=== PATIENT | female | born 1975 | race Caucasian/White ===

== ENCOUNTER → 2020-08-25 10:06 | Outpatient (BNVA) | payer BC, SELFPAY | PROVIDERS: Family Provider Nurse Practitioner Family; Visit Provider Nurse Practitioner Family | DX: Z13.220 Encounter for screening for lipoid disorders (principal); Z13.1 Encounter for screening for diabetes mellitus | CPT/HCPCS: 80048; 80061 ==

== ENCOUNTER 2020-09-08 13:46 | Outpatient (CLI) | payer BC, SELFPAY ==
--- NOTE | 2020-09-08 14:30 | MM_ITS ---
WS: [id number] BILATERAL DIGITAL SCREENING MAMMOGRAPHY WITH CAD CLINICAL INFORMATION: screening HISTORY: Screening mammogram. No current complaints. COMPARISON: TECHNIQUE: Bilateral CC and MLO views. FINDINGS: Scattered fibroglandular densities bilaterally. No suspicious focal mass, asymmetry, calcifications, or architectural distortion. No evidence of malignancy. MM/[place] [id number] IMPRESSION: BI-RADS: 1-Negative FOLLOW UP: 1 Year Follow-up Recommend return to annual screening mammography.
== END 2020-09-08 13:47 | disposition home or self-care (01) ==
LOC: RADSHAW 13:52
PROVIDERS: Family Provider Nurse Practitioner Family; PCP Nurse Practitioner Family; Visit Provider Nurse Practitioner Family
DX: Z12.31 Encounter for screening mammogram for malignant neoplasm of breast (principal)
CPT/HCPCS: 77067

== ENCOUNTER 2020-09-13 14:51 | Outpatient (CLI) | payer BC, SELFPAY ==
--- NOTE | 2020-09-13 14:59 | USCV_ITS ---
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 – [place] Indication: leg pain HISTORY: Lower extremity pain. PROCEDURES: Venous duplex imaging was performed in only the left lower extremity. The following venous structures were evaluated: common femoral vein, profunda vein, proximal portion of the greater saphenous vein, superficial femoral vein, and the popliteal vein. In addition, the posterior tibial and peroneal trunk were evaluated. Serial compression, augmentation maneuvers, and spectral Doppler flow evaluation were performed. FINDINGS: Normal 2-D Doppler and augmentation and compressibility throughout the lower extremity venous structures. Additional imaging through the proximal calf veins also reveals no thrombus. Limited evaluation of the greater saphenous vein is patent with no thrombus. CONCLUSIONS No DVT left lower extremity. Dr. Rashida Torres DO (Electronically Signed) Final Date: 14 September 2020 08:36 S
== END 2020-09-13 14:52 | disposition home or self-care (01) ==
PROVIDERS: PCP Nurse Practitioner Family; Visit Provider Nurse Practitioner Family
DX: M79.652 Pain in left thigh (principal); M79.605 Pain in left leg
CPT/HCPCS: 93971

== ENCOUNTER 2023-07-23 10:20 | Outpatient (CLI) | payer OTHER, SELFPAY ==
--- NOTE | 2023-07-23 10:31 | XRR_ITS ---
PROCEDURE INFORMATION: Exam: XR Right Shoulder Exam date and time: 07/23/2023 10:44 AM Age: 47 years old Clinical indication: Shoulder; Right; Patient HX: Patient has limited motion and pain for 2 months; Additional info: M25.511 - pain in right shoulder TECHNIQUE: Imaging protocol: Radiologic exam of the right shoulder. Views: 2 or more views. COMPARISON: CR XR chest 1V [id number] 03/09/2018 7:37 PM FINDINGS: Bones/joints: The glenohumeral joint is intact. There is mild hypertrophy of the acromioclavicular joint. Soft tissues: There is a calcification seen adjacent to the greater tuberosity. XR/XR shoulder RT min 2V* [id number] IMPRESSION: 1. Mild right acromioclavicular joint hypertrophy. 2. Calcific tendinosis.
== END 2023-07-23 10:21 | disposition home or self-care (01) ==
PROVIDERS: PCP Nurse Practitioner Family; Visit Provider Nurse Practitioner Family
DX: M75.31 Calcific tendinitis of right shoulder (principal); M25.511 Pain in right shoulder
CPT/HCPCS: 73030

== ENCOUNTER 2023-08-22 08:19 | Outpatient (CLI) | payer OTHER, SELFPAY ==
--- NOTE | 2023-08-22 08:45 | MR_ITS ---
WS: [id number] MRI RIGHT SHOULDER NONCONTRAST TECHNIQUE: Sagittal T2, coronal T1, T2 and proton density imaging. Axial gradient PDE imaging. CLINICAL INFORMATION: M25.511 - Pain in right shoulder COMPARISON: None. FINDINGS: Moderate degenerative arthritis at the AC joint with mild downsloping acromion. Slight subacromial sp urring. Mild edema at the AC joint. Small amount of subacromial subdeltoid fluid. Impingement on the distal supraspinatus. Tendinopathy with partial intrasubstance and bursal surface tear at the distal insertion. No tendon r etraction. Normal infraspinatus. Normal teres minor. Normal subscapularis. Normal biceps tendon in the bicipital groove. Moderate degenerative arthritis glenohumeral articulation. Normal visualized glenoid labrum. Biceps l abral anchor appears intact. IMPRESSION: Moderate degenerative arthritis AC joint with impingement distal supraspinatus. Tendinopathy with intrasubstance and bursal surface tears involving the distal supraspinatus. No tend on retraction. Tiny insertional tear at the infraspinatus distally. Rotator cuff is otherwise normal. Biceps tendon intact within the bicipital groove.
== END 2023-08-22 08:20 | disposition home or self-care (01) ==
LOC: RAD 08:19
PROVIDERS: PCP Nurse Practitioner Family; Visit Provider Nurse Practitioner Family
DX: M75.101 Unspecified rotator cuff tear or rupture of right shoulder, not specified as traumatic (principal); M19.011 Primary osteoarthritis, right shoulder
CPT/HCPCS: 73221

== ENCOUNTER 2023-10-15 07:00 | Outpatient (CLI) | payer OTHER, SELFPAY ==
--- NOTE | 2023-10-15 07:15 | USCV_ITS ---
Jyoti Moreno Age: 47 Gender: F : 1975 Exam Date: 10/15/2023 07:32 Ordering Phys: Santo Leslie MD Technologist: MARYJO [place] [facility] [place]: TIA BP: 118 / 86 HR: 69 Rhythm: Sinus Technical Quality: Adequate MEASUREMENTS (Male / Female) Normal Values 2D ECHO LVOT Diameter 2.0 cm LV Ejection Fraction MOD 2C 63.7 % LV Ejection Fraction 2C AL 64.2 % LA Diameter 2.3 cm LA Width 2.3 cm LA Height 3.7 cm RA Width 2.3 cm RA Height 3.5 cm Aorta at Sinotubular Diameter 2.1 cm IVC Diameter 1.6 cm M-MODE Aortic Annulus Diameter 2.9 cm LA Ao Ratio MM 0.6 MV E Point Septal Separation 0.6 cm DOPPLER AV Peak Velocity 110.0 cm/s LVOT Peak Velocity 97.0 cm/s AV Area Cont Eq vti 3.1 cm squared AV Area Cont Eq pk 2.7 cm squared MV Peak Velocity 90.0 cm/s MV Area PHT 4.1 cm squared Mitral E to A Ratio 1.4 MV E' Velocity 46.0 cm/s Mitral E to MV E' Ratio 5.5 Mitral E to LV E' Lateral Ratio 4.9 Mitral E to LV E' Septal Ratio 6.3 TR Peak Velocity 122.1 cm/s TR Peak Gradient 6.0 mmHg TR Mean Velocity 106.3 cm/s TR Mean Gradient 4.6 mmHg TR Velocity Time Integral 41.6 cm TV Peak E Velocity 65.0 cm/s Right Atrial Pressure 3.0 mmHg Pulmonary Artery Systolic Pressu 9.0 mmHg PV Peak Velocity 73.0 cm/s RV Acceleration Time 0.1 s RV Ejection Time 0.3 s RV AcT/ET 0.3 FINDINGS Left Ventricle Normal left ventricular size and systolic function, EF 60 %. No regional wall motion abnormalities. Right Ventricle The right ventricle is normal in size and function. Right Atrium The right atrium is normal in size. Left Atrium The left atrium is normal in size. Mitral Valve No gross abnormalities noted Aortic Valve Mild aortic valve regurgitation. Tricuspid Valve Trace tricuspid valve regurgitation. Pulmonic Valve No gross abnormalities noted Pericardium Normal pericardium without effusion. Aorta The root appears to be upper limit of normal size IVC Normal inferior vena cava. CONCLUSIONS Normal left ventricular size and systolic function, EF 60 %. No regional wall motion abnormalities. Mild aortic valve regurgitation. Trace tricuspid valve regurgitation. Possibly normal cardiac chamber sizes. The aortic root, upper limit of normal There is no pericardial effusion. There are no intracardiac masses. No similar previous studies are available for comparison Dr Rukhsana Do MD FAC (Electronically Signed) Final Date: 18 October 2023 10:24 S
== END 2023-10-15 07:01 | disposition home or self-care (01) ==
LOC: RAD 07:00
PROVIDERS: PCP Nurse Practitioner Family; Visit Provider Psychiatry & Neurology Neurology
DX: G45.9 Transient cerebral ischemic attack, unspecified (principal); I08.2 Rheumatic disorders of both aortic and tricuspid valves
CPT/HCPCS: 93306

== ENCOUNTER 2023-10-16 13:24 | Outpatient (CLI) | payer OTHER, SELFPAY ==
[2023-10-16 15:16] LABS: Homocysteine 9.89
[2023-10-17 22:45] LABS: Lupus Hexagonal Phas Confirm NEGATIVE (NEGATIVE)
[2023-10-17 22:49] LABS: PTT-LA-Screen 47 sec (< OR = 40)
[2023-10-19 04:45] LABS: Anti-Cardiolipin IgA AB <2.0 APL-U/mL
[2023-10-20 18:29] LABS: PROTEIN S, ACTIVITY 78 % normal (60-140)
[2023-10-21 22:55] LABS: Beta 2 Glycoprotein IGA <2.0 U/mL (<20.0); Beta 2 Glycoprotein IGG <2.0 U/mL (<20.0); Beta 2 Glycoprotein IGM <2.0 U/mL (<20.0)
[2023-10-22 15:54] LABS: PROTHROMBIN (FACTOR II) 20210G NEGATIVE
[2023-10-22 16:15] LABS: Factor 5 Leiden Mutation NEGATIVE
[2023-10-23 02:14] LABS: Antithrombin III Activity 141 % normal (80-135); PROTEIN C, ACTIVITY 196 % normal (70-180)
== END 2023-10-16 13:25 | disposition home or self-care (01) ==
LOC: LAB 13:24
PROVIDERS: PCP Nurse Practitioner Family; Visit Provider Psychiatry & Neurology Neurology
DX: G45.9 Transient cerebral ischemic attack, unspecified (principal); G43.909 Migraine, unspecified, not intractable, without status migrainosus; R20.0 Anesthesia of skin; R20.2 Paresthesia of skin; F41.9 Anxiety disorder, unspecified; Z82.0 Family history of epilepsy and other diseases of the nervous system; Z82.49 Family history of ischemic heart disease and other diseases of the circulatory system
CPT/HCPCS: 36415; 81241; 83090; 85210; 85300; 85303; 85306; 85613; 85730; 86146; 86147

== ENCOUNTER 2023-12-17 07:53 | Oncology outpatient (recurring) (ONCR) | payer OTHER, SELFPAY ==
[2023-12-19 19:15] LABS: PTT-LA-Screen 37 sec (< OR = 40)
[2023-12-20 02:36] LABS: B2 Glycoprotein I IGM AB <2.0 U/mL; CARDIOLIPIN AB (IGG) <2.0 GPL-U/mL; CARDIOLIPIN AB (IGM) <2.0 MPL-U/mL
== END 2023-12-25 23:59 | disposition home or self-care (01) ==
PROVIDERS: Visit Provider Internal Medicine
DX: R20.0 Anesthesia of skin (principal); R20.2 Paresthesia of skin; Z86.73 Personal history of transient ischemic attack (TIA), and cerebral infarction without residual deficits
CPT/HCPCS: 36415; 85613; 85730; 86146

== ENCOUNTER 2024-03-26 09:56 | Oncology outpatient (recurring) (ONCR) | payer OTHER, SELFPAY | END 2024-03-26 23:59 | disposition home or self-care (01) | PROVIDERS: PCP Nurse Practitioner Family; Visit Provider Nurse Practitioner Family | DX: Z53.9 Procedure and treatment not carried out, unspecified reason (principal) ==

== ENCOUNTER 2025-03-02 13:13 | Outpatient (CLI) | payer OTHER, SELFPAY ==
--- NOTE | 2025-03-02 13:45 | MR_ITS ---
WS: [id number] MRI BRAIN WITH AND WITHOUT CONTRAST HISTORY: G45.9 - Transient cerebral ischemic attack, unspecified COMPARISON: None available. TECHNIQUE: Multiplanar imaging performed through the brain with MultiHance 13 ml's IV. No acute infarcts are seen. Elise-white matter differentiation is well preserved. Minimal small vessel disease. No prior infarct. No significant volume loss. Normal hippocampal formations. No susceptibility artifacts or prior lacunar infarcts. Ventricles and extra-axial spaces are normal. Clivus and pituitary gland are normal. Visualized posterior fossa and brainstem are also normal. Postcontrast images are negative for masses or vascular malformations. Dural venous sinuses are normal. Paranasal sinuses: Well aerated with no significant disease. Mastoid air cells: Normal. Calvarium and scalp: Normal. MR/MR head wo/w con [id number] IMPRESSION: 1. No acute or prior infarcts or hemorrhage. 2. Minimal T2 or FLAIR signal hyperintensities which can be related to small v essel disease, hypertension or migraines or smoking history. 3. Normal ventricles. 4. No enhancing masses.
[2025-03-02] MEDS: gadobenate dimeglumine 20 mL vial 13 ML IV (13:58)
== END 2025-03-02 13:14 | disposition home or self-care (01) ==
PROVIDERS: PCP Nurse Practitioner Family; Visit Provider Psychiatry & Neurology Neurology
DX: G45.9 Transient cerebral ischemic attack, unspecified (principal); R56.9 Unspecified convulsions; G43.909 Migraine, unspecified, not intractable, without status migrainosus; R93.0 Abnormal findings on diagnostic imaging of skull and head, not elsewhere classified
CPT/HCPCS: 70553

== ENCOUNTER 2025-05-18 06:48 | Outpatient (CLI) | payer OTHER, SELFPAY ==
--- NOTE | 2025-05-18 07:30 | CT_ITS ---
WS: [id number] CT ANGIOGRAM CEREBRAL AND CAROTID ARTERIES HISTORY: G45.9 - Transient cerebral ischemic attack, unspecified, migraine for 3 weeks. Blurry vision right eye. TECHNIQUE: CT angiogram is performed of the carotid and cerebral arteries. During arterial injection imaging is obtained from the skull vertex to the aortic arch in 1.25 mm imaging. Coronal and sagittal reformats are submitted. Additional multi planar reformats of the carotid and cerebral arteries are submitted, MIP imaging also reviewed. NASCET criteria utilized. All CT scans at [facility] use at least one of these dose optimization techniques: automated exposure control; mA and/or kV adjustment per patient size (includes targeted exams where dose is matched to clinical indication); or iterative reconstruction. CONTRAST: Omnipaque 350; 100 mL IV. DLP: 1146.74 mGy.cm COMPARISON: None available. Noncontrast CT brain is first performed. No acute intracranial hemorrhage. Normal ventricles. No prior infarct. Carotid Angiogram: Right carotid: Common carotid artery: Arises normally from the innominate artery. No significant plaque or stenosis. Internal carotid artery: No plaque or stenosis. External carotid artery: Patent. Left carotid: Common carotid artery: Arises normally from the aorta. No significant plaque or stenosis. Internal carotid artery: No plaque or stenosis. External carotid artery: Patent. Right vertebral artery: Normal and codominant. Left vertebral artery: Arises from the aortic arch. Codominant. Normal with no occlusion. Subclavian arteries: No stenosis or significant abnormality. Upper thorax: Normal. Thyroid gland: Heterogeneous thyroid. Very small thyroid nodules. Osseous structures: Unremarkable. CEREBRAL ANGIOGRAM: Intracranial vertebral arteries: Normal with no significant atherosclerosis. Basilar artery: No significant stenosis or occlusion. No aneurysm. Intracranial Internal carotid arteries: Demonstrates no significant stenosis or plaque. Middle cerebral arteries: Normal. Anterior cerebral arteries and ACOM: Normal. Slightly smaller caliber RIGHT A1 segment. Both segments are patent. Posterior cerebral arteries and PCOM's: Hypoplastic LEFT P-comm. Dominant RIGHT P-comm. Normal posterior cerebral arteries. There is a very thin filling defect in the LEFT jugular vein at the level of C2. This is asymmetric to the RIGHT. This is not an arachnoid granulation. Defect fills approximately 25% of the jugular vein. Mastoid air cells: Normal. Paranasal sinuses: Normal. Calvarium: Normal. Numerous bilateral cervical chain lymph nodes. New reactive. Normal fatty anni present. CT/CT angio headneck* [id number] IMPRESSION: 1. Normal carotid arteries. 2. No occlusions or aneurysms in the [place]. 3. Thin filling defect in the LEFT jugular vein, involving 25%. Nonocclusive c hronic venous sinus thrombosis should be considered. This could also potentiall y be a flow artifact but similar artifact is not noted on the RIGHT. 4. LEFT vertebral artery arises from the arch.
[2025-05-18] MEDS: iohexol 350 mg/mL 500 mL Btl (per mL) IV (08:18)
== END 2025-05-18 06:49 | disposition home or self-care (01) ==
LOC: RAD 06:48
PROVIDERS: PCP Nurse Practitioner Family; Visit Provider Psychiatry & Neurology Neurology
DX: G45.9 Transient cerebral ischemic attack, unspecified (principal); M62.40 Contracture of muscle, unspecified site; G43.909 Migraine, unspecified, not intractable, without status migrainosus
CPT/HCPCS: 70496; 70498

== ENCOUNTER 2025-06-06 14:15 | Outpatient (CLI) | payer OTHER, SELFPAY ==
--- NOTE | 2025-06-06 14:23 | USCV_ITS ---
Jyoti Moreno Age: 49 Gender: F : 1975 Exam Date: 06/06/2025 14:37 Ordering Phys: Cindy Ross [employer] WORKER-[employer] XX Technologist: CARISSA Exam Location: [facility] – [place] Indication: Lt carotid stenosis and occlusion Risk Factors: Previous Vascular Surgery: Right Brachial BP: / Left Brachial BP: / Right Left Velocity (cm/s) Spectral Plaque Velocity (cm/s) Spectral Plaque Syst/Diast Broadening Syst/Diast Broadening 50.60/ 19.60 Prox CCA 61.40 / 28.80 62.80/ 28.10 Mid CCA 65.10 / 30.60 53.00/ 24.90 Distal CCA 54.90 / 29.60 52.40/ 26.40 Prox ICA 42.40 / 25.50 39.60/ 23.40 Mid ICA 43.70 / 22.80 52.30/ 28.60 Distal ICA 47.00 / 28.70 78.80 ECA 43.00 1.00 ICA/CCA 0.80 Antegrade Vertebral Antegrade 29.90/ 12.90 cm/s 41.40/ 20.70 cm/s Tri Subclavian Tri 39.10 65.60 CONCLUSIONS Right ICA stenosis <50%. Left ICA stenosis <50%. Normal antegrade Doppler flow noted in the right vertebral artery. Normal antegrade Doppler flow noted in the left vertebral artery. Chang Duvall MD (Electronically Signed) Final Date: 06 June 2025 15:35 S
--- NOTE | 2025-06-06 14:30 | US_ITS ---
WS: [id number] ULTRASOUND SOFT TISSUES cervical chains. HISTORY: ACUTE LYMPHADENITIS COMPARISON: None available. TECHNIQUE: 2-D and color Doppler imaging is submitted. Bilateral cervical chain lymph nodes are identified. These lymph nodes have a normal fatty hilum. Normal shape and cortex. No increased vascularity. US/US soft tissue head neck [id number] IMPRESSION: No cervical chain lymphadenopathy.
== END 2025-06-06 14:16 | disposition home or self-care (01) ==
LOC: RAD 14:16
PROVIDERS: PCP Nurse Practitioner Family; Visit Provider Nurse Practitioner Family
DX: I65.23 Occlusion and stenosis of bilateral carotid arteries (principal)
CPT/HCPCS: 76536; 93880